=== PATIENT | female | born 1985 | race Caucasian/White ===

== ENCOUNTER 2017-07-14 22:18 | Emergency (ER) | payer SELFPAY ==
[~2017-07-14] VITALS: Ht 162.6 cm; Wt 94.0 kg
[~2017-07-14 22:18] MED LIST: VIC PO
[2017-07-14 22:28] VITALS: Ht 162.6 cm; Wt 94.0 kg
== END 2017-07-15 01:44 | disposition left against medical advice (07) ==
LOC: E/R 22:18
DX: Z53.21 Procedure and treatment not carried out due to patient leaving prior to being seen by health care provider (principal)